=== PATIENT | female | born 2000 | race African-American/Black ===

== ENCOUNTER 2019-01-11 18:50 | Emergency (ER) | payer MEDICAID, OTHER ==
[~2019-01-11] VITALS: Ht 170.2 cm; Wt 137.0 kg
[2019-01-11 19:00] VITALS: BP 154/95
[2019-01-11] MEDS ORDERED: Ketorolac 30mg Inj IV ONE (20:00)
[2019-01-11] MEDS ORDERED: Acetaminophen 500mg (ES) tab ORAL ONE (20:00)
--- NOTE | 2019-01-11 20:01 | Emergency Room Report ---
History of Present Illness General Chief Complaint: Headache Source: Patient Present Illness HPI The patient presents with headache. She has felt ill since yesterday. She has tried taking Tylenol. The last time she took it was 11 AM. The pain is rated 8 /10. Throbbing. But does not radiated to her neck. Somewhat worse when she bends over. Denies congestion, sore throat, slight nausea vomiting, diarrhea, dysuria, cough, rashes, joint pain. She is on control. Her last period was mid December. She does not believe she is . She denies medical problems such as diabetes. She takes no chronic medications. Her appetite has been decreased. She feels dehydrated. She feels weak when she stands. Slight nausea. Anxious about being at the hospital and the fact that the headache is not gotten better. No recent travel and no exposure to ill people although she is a student. Allergies: Coded Allergies: No Known Allergies (Unverified , 01/11/19) Patient History Past Medical History: see triage record Social History: Denies: smoking, alcohol use, drug use Social History Narrative college student Last Menstrual Period: 12/25/18 Now: No Reviewed Nursing Documentation: PMH: Agreed; PSxH: Agreed Nursing Documentation-PMH Past Medical History: No Stated History Review of Systems All Other Systems: negative except mentioned in HPI Physical Exam Vital Signs Date Time Temp Pulse Resp B/P (MAP) Pulse Ox O2 Delivery O2 Flow Rate FiO2 01/11/19 18:56 100.9 103 18 154/95 (114) 97 Room Air Sp02 EP Interpretation: reviewed, normal General Appearance: well appearing, no apparent distress, GCS 15, non-toxic Head: normocephalic, atraumatic Eyes: bilateral eye normal inspection, bilateral eye PERRL, bilateral eye EOMI ENT: normal pharynx, no angioedema, normal voice, moist mucus membranes Neck: full range of motion, supple, no meningismus Respiratory: lungs clear, normal breath sounds Cardiovascular #1: tachycardia Cardiovascular #2: 2+ radial (R) Gastrointestinal: normal inspection, normal bowel sounds, non tender, no mass, non-distended Musculoskeletal: back normal, gait/station normal, normal range of motion Neurologic: alert, oriented x3 Skin: other - Acne Medical Decision Making Diagnostic Impression: Primary Impression: Viral syndrome Additional Impressions: Headache Qualified Codes: R51 - Headache Dehydration ER Course Presents with headache fever and tachycardia. Differential includes viral syndrome, meningitis, sinusitis, other occult infection such as urinary tract infection amongst others. Denies most sources for fever at this time aside from having a headache. She has a nonfocal neurologic exam and cerebritis or encephalitis are not suspected. Based on her exam meningitis is excluded. Evaluation with chest x-ray and labs including lactate. Patient will be treated with IV hydration, Tylenol and Toradol. She believes she is not and I will not wait for test to come back before initiating medication orders. Labs remarkable for being normal. Patient improved with treatment. Headache decreased and decreased weakness. Discussed findings with patient and parents. Also discussed close outpatient observation and the need to return if not doing better. Patient stable for outpatient observation and treatment. Laboratory Tests Test 01/11/19 20:00 01/11/19 20:10 White Blood Count 9.9 K/UL (4.8-10.8) Red Blood Count 5.52 M/UL (4.20-5.40) H Hemoglobin 14.4 G/DL (12.0-16.0) Hematocrit 44.5 % (37.0-47.0) Mean Corpuscular Volume 81 FL (80-99) Mean Corpuscular Hemoglobin 26.1 PG (27.0-31.0) L Mean Corpuscular Hemoglobin Concent 32.3 G/DL (32.0-36.0) Red Cell Distribution Width 11.9 % (11.6-14.8) Platelet Count 338 K/UL (150-450) Mean Platelet Volume 6.0 FL (6.5-10.1) L Neutrophils (%) (Auto) 66.8 % (45.0-75.0) Lymphocytes (%) (Auto) 25.6 % (20.0-45.0) Monocytes (%) (Auto) 6.1 % (1.0-10.0) Eosinophils (%) (Auto) 0.6 % (0.0-3.0) Basophils (%) (Auto) 1.0 % (0.0-2.0) Sodium Level 137 MMOL/L (136-145) Potassium Level 4.0 MMOL/L (3.5-5.1) Chloride Level 103 MMOL/L (98-107) Carbon Dioxide Level 23 MMOL/L (21-32) Anion Gap 11 mmol/L (5-15) Blood Urea Nitrogen 10 mg/dL (7-18) Creatinine 1.1 MG/DL (0.55-1.30) Estimate Glomerular Filtration Rate > 60 mL/min (>60) Glucose Level 106 MG/DL (74-106) Calcium Level 9.6 MG/DL (8.5-10.1) Total Bilirubin 0.3 MG/DL (0.2-1.0) Aspartate Amino Transferase (AST) 20 U/L (15-37) Alanine Aminotransferase (ALT) 30 U/L (12-78) Alkaline Phosphatase 61 U/L (46-116) Total Protein 8.3 G/DL (6.4-8.2) H Albumin 4.0 G/DL (3.4-5.0) Globulin 4.3 g/dL Albumin/Globulin Ratio 0.9 (1.0-2.7) L Lipase 133 U/L (73-393) Urine Color Pale yellow Urine Appearance Clear Urine pH 7 (4.5-8.0) Urine Specific [place] 1.015 (1.005-1.035) Urine Protein Negative (NEGATIVE) Urine Glucose (UA) Negative (NEGATIVE) Urine Ketones Negative (NEGATIVE) Urine Blood Negative (NEGATIVE) Urine Nitrite Negative (NEGATIVE) Urine Bilirubin Negative (NEGATIVE) Urine Urobilinogen 1 MG/DL (0.0-1.0) H Urine Leukocyte Esterase 1+ (NEGATIVE) H Urine RBC 0-2 /HPF (0 - 2) Urine WBC 0-2 /HPF (0 - 2) Urine Squamous Epithelial Cells Moderate /LPF (NONE/OCC) H Urine Bacteria Few /HPF (NONE) Urine HCG, Qualitative Negative (NEGATIVE) Last Vital Signs Date Time Temp Pulse Resp B/P (MAP) Pulse Ox O2 Delivery O2 Flow Rate FiO2 01/11/19 22:10 99.2 85 22 136/75 99 Room Air Status: improved Disposition: HOME, SELF-CARE Condition: Improved Scripts Acetaminophen (Tylenol) 325 Mg Tablet 650 MG ORAL Q6H PRN for Prn Pain/Headache/Temp > 101, #20 TAB 0 Refills Prov: Alan Cheung MD 01/11/19 Ibuprofen* (MOTRIN*) 600 Mg Tablet 600 MG ORAL Q6H PRN for For Pain, #12 TAB 0 Refills Prov: Alan Cheung MD 01/11/19 Alan Cheung MD Jan 11, 2019 20:01
[2019-01-11 20:15] LABS: EOSINOPHILS % (AUTO) 0.6 % (0.0-3.0); HEMATOCRIT 44.5 % (37.0-47.0); HEMOGLOBIN 14.4 G/DL (12.0-16.0); LYMPHOCYTES % (AUTO) 25.6 % (20.0-45.0); MEAN CORPUSCULAR VOLUME 81 FL (80-99); MONOCYTES % (AUTO) 6.1 % (1.0-10.0); NEUTROPHILS % (AUTO) 66.8 % (45.0-75.0); PLATELET COUNT 338 K/UL (150-450); RED BLOOD COUNT 5.52 M/UL (4.20-5.40); RED CELL DISTRIBUTION WIDTH 11.9 % (11.6-14.8); WHITE BLOOD COUNT 9.9 K/UL (4.8-10.8)
[2019-01-11 20:27] LABS: APPEARANCE,URINE CLEAR; BILIRUBIN, URINE NEGATIVE (NEGATIVE); COLOR,URINE PALE YELLOW; GLUCOSE, URINE (UA) NEGATIVE (NEGATIVE); KETONES,URINE NEGATIVE (NEGATIVE); LEUKOCYTE ESTERASE ,URINE 1+ (NEGATIVE); NITRITE,URINE NEGATIVE (NEGATIVE); PH,URINE 7 (4.5-8.0); PROTEIN,URINE NEGATIVE (NEGATIVE); UROBILINOGEN,URINE 1 MG/DL (0.0-1.0)
[2019-01-11 20:29] LABS: ANION GAP 11 mmol/L (5-15); BLOOD UREA NITROGEN 10 mg/dL (7-18); CALCIUM 9.6 MG/DL (8.5-10.1); CARBON DIOXIDE 23 MMOL/L (21-32); CHLORIDE 103 MMOL/L (98-107); CREATININE 1.1 MG/DL (0.55-1.30); SODIUM 137 MMOL/L (136-145)
[2019-01-11 20:33] LABS: ALANINE AMINOTRANSFERASE 30 U/L (12-78); ALBUMIN/GLOBULIN RATIO 0.9 (1.0-2.7); ALKALINE PHOSPHATASE 61 U/L (46-116); ASPARTATE AMINO TRANSFERASE 20 U/L (15-37); BILIRUBIN,TOTAL 0.3 MG/DL (0.2-1.0)
[2019-01-11 21:00] VITALS: BP 132/72
[2019-01-11] MEDS ORDERED: IBUPROFEN600 MG ORAL (22:02)
[2019-01-11] MEDS ORDERED: TYLENOL325 MG ORAL (22:02)
[2019-01-11 22:10] VITALS: BP 136/75
== END 2019-01-11 22:10 | disposition home or self-care (01) ==
LOC: EMR 20:53
DX: B34.9 Viral infection, unspecified (principal); R51 Headache; E86.0 Dehydration; Z79.3 Long term (current) use of hormonal contraceptives; L70.9 Acne, unspecified
CPT/HCPCS: 36415; 80053; 81003; 81025; 83690; 85025; 96361; 96374; 99284; J1885

== ENCOUNTER 2019-11-16 19:48 | Emergency (ER) | payer OTHER ==
[~2019-11-16] VITALS: Ht 170.2 cm; Wt 139.7 kg
[~2019-11-16 19:48] MED LIST: IBUPROFEN600 MG ORAL; TYLENOL325 MG ORAL
--- NOTE | 2019-11-16 19:50 | NUR ---
ED Nurse Note: Janes wheelchaired into ED c/o lower back pain status post fall that occured this morning, patient states that she slipped, no head trauma noted, states that she feels something protruding on the lower back side, rates her pain a 9/10. patient is alert and oriented x4 and is able to bare weight and ambulate. patient placed in a bed, will wait for further orders
[2019-11-16 20:01] VITALS: BP 129/86
--- NOTE | 2019-11-16 20:05 | Emergency Room Report ---
History of Present Illness General Chief Complaint: Multiple Trauma/Fall Source: Patient Present Illness HPI Patient is a 19-year-old female past medical history of obesity who presents to the ER complaining of coccyx pain status post fall. Patient states that she slipped and fell this morning landing onto her buttocks. She denies any head trauma or loss of consciousness. Patient is able to ambulate but states that her pain has been increasing throughout the day. She denies any abdominal pain , nausea or vomiting. Allergies: Coded Allergies: No Known Allergies (Unverified , 01/11/19) COVID-19 Screening Contact w/high risk pt: No Recent Travel to affected area: No Experienced COVID-19 symptoms?: No Patient History Past Medical History: other - obesity Past Surgical History: none Social History: Denies: smoking, alcohol use, drug use Last Menstrual Period: 10/31/19 Now: No : 0 Para: 0 Nursing Documentation-[facility] Past Medical History: No Stated History Review of Systems All Other Systems: negative except mentioned in HPI Physical Exam Vital Signs Date Time Temp Pulse Resp B/P (MAP) Pulse Ox O2 Delivery O2 Flow Rate FiO2 11/16/19 19:51 100.4 125 16 129/86 (100) 98 Room Air Sp02 EP Interpretation: reviewed, normal General Appearance: no apparent distress, alert, GCS 15, non-toxic Head: normocephalic, atraumatic Eyes: bilateral eye normal inspection, bilateral eye PERRL ENT: hearing grossly normal, normal pharynx, no angioedema, normal voice Neck: full range of motion, supple/symm/no masses Respiratory: chest non-tender, lungs clear, normal breath sounds, speaking full sentences Cardiovascular #1: tachycardia Gastrointestinal: normal bowel sounds, non tender, soft, non-distended, no guarding, no rebound Musculoskeletal: other - L5-S1 and coccyx ttp, no step ofs Neurologic: alert, motor strength/tone normal, oriented x3, sensory intact, responsive, speech normal Psychiatric: judgement/insight normal, memory normal, mood/affect normal, no suicidal/homicidal ideation Reflexes: 2+ knee (R), 2+ knee (L) Skin: no rash Lymphatic: no adenopathy Medical Decision Making Diagnostic Impression: Primary Impression: Coccyx sprain Additional Impression: Lumbar sprain ER Course Patient's x-rays demonstrate no acute findings. Patient had low-grade fever in triage but had no viral complaints. I sent a urine which demonstrated no evidence for UTI. Patient's x-rays demonstrate no acute fractures. Patient denies any other symptoms such as body aches, chest pain, cough or shortness of breath. Patient ambulating without difficulty. Patient given a copy of her x- ray results. After discussing risks and benefits of further diagnostics, treatment plans, as well as indications for and risks of admission, the patient is agreeable to being discharged home. I have explained that their evaluation and treatment in the emergency department today is an important step towards them achieving better health but that their evaluation today is not intended to replace further evaluation and treatment by a physician in their local clinic. I have explained that while the current findings suggest no immediate life threatening emergency they will require further evaluation and treatment by a physician of their choice in their area. They understand that it will be necessary for them to review the final reports of their ED visit with their clinic physician. We have reviewed indications for return to the Emergency Department. I have explained that additional time may need to pass and/or additional testing as an outpatient may be necessary before a definitive diagnosis can be made. They tell me they are willing to follow up as instructed within the timeframe I recommend. They appear to understand what we discussed. Additionally they understand that if they are unable to be seen by an outpatient physician they are welcome, and in fact should, return to the Emergency Department for a repeat evaluation. The patient is stable at time of discharge. Last Vital Signs Date Time Temp Pulse Resp B/P (MAP) Pulse Ox O2 Delivery O2 Flow Rate FiO2 11/16/19 19:51 100.4 125 16 129/86 (100) 98 Room Air Disposition: HOME, SELF-CARE Condition: Stable - improved Scripts Ibuprofen* (MOTRIN*) 600 Mg Tablet 600 MG ORAL FOUR TIMES A DAY, #30 TAB 0 Refills Prov: Cheri Lux M.D. 11/16/19 Additional Instructions: The patient was provided with discharge instructions, notified to follow-up with a primary care doctor and or specialist in the next 24-48 hours, and to return to the ED if they have worsening of their symptoms. Please note that this report is being documented using [employer] technology. This can lead to erroneous entry secondary to incorrect interpretation by the dictating instrument. Cheri Lux M.D. November 16, 2019 20:05
[2019-11-16 20:37] LABS: APPEARANCE,URINE CLEAR; BILIRUBIN, URINE NEGATIVE (NEGATIVE); COLOR,URINE PALE YELLOW; GLUCOSE, URINE (UA) NEGATIVE (NEGATIVE); KETONES,URINE NEGATIVE (NEGATIVE); LEUKOCYTE ESTERASE ,URINE NEGATIVE (NEGATIVE); NITRITE,URINE NEGATIVE (NEGATIVE); PH,URINE 6 (4.5-8.0); PROTEIN,URINE NEGATIVE (NEGATIVE); UROBILINOGEN,URINE 1 MG/DL (0.0-1.0)
--- NOTE | 2019-11-16 21:13 | Diagnostic Imaging Report ---
EXAM: XR Sacrum and Coccyx, 2 or more Views CLINICAL HISTORY: TRAUMA TECHNIQUE: Frontal and lateral views of the sacrum and coccyx. COMPARISON: No relevant prior studies available. FINDINGS: Sacrum/coccyx: Unremarkable as visualized. No acute fracture. Vertebrae: No acute fracture or malalignment. Soft tissues: No radiodense foreign body. IMPRESSION: No acute displaced fracture.
--- NOTE | 2019-11-16 21:13 | Diagnostic Imaging Report ---
EXAM: XR Lumbar Spine, 2 or 3 Views CLINICAL HISTORY: TRAUMA TECHNIQUE: Frontal and lateral views of the lumbar spine. COMPARISON: No relevant prior studies available. FINDINGS: Vertebrae: No acute fracture or malalignment. Disc spaces: No acute findings. Soft tissues: No radiodense foreign body. IMPRESSION: No acute fracture or malalignment.
[2019-11-16] MEDS ORDERED: IBUPROFEN600 M1 ORAL (21:14)
[2019-11-16 21:20] VITALS: BP 129/86
--- NOTE | 2019-11-16 21:22 | NUR ---
ER DISCHARGE NOTE: Patient is cleared to be discharged per ERMD, pt is aox4, on room air, with stable vital signs. pt was given dc and prescription instructions, pt was able to verbalize understanding, pt id band removed without complications. pt is able to ambulate with steady gait. pt took all belongings.
== END 2019-11-16 21:20 | disposition home or self-care (01) ==
LOC: EMR 20:27
DX: S33.8XXA Sprain of other parts of lumbar spine and pelvis, initial encounter (principal); S33.5XXA Sprain of ligaments of lumbar spine, initial encounter; E66.9 Obesity, unspecified; W01.0XXA Fall on same level from slipping, tripping and stumbling without subsequent striking against object, initial encounter; Y92.9 Unspecified place or not applicable; Z68.42 Body mass index [BMI] 45.0-49.9, adult
CPT/HCPCS: 72020; 72220; 81003; 81025; Z7502; 99284